=== PATIENT | male | born 1975 | race Two or more races ===

== ENCOUNTER 2023-12-16 20:47 | Emergency (ER) | payer BC ==
[~2023-12-16] VITALS: Ht 167.6 cm; Wt 96.0 kg
[2023-12-16 21:07] VITALS: O2SAT 99
[2023-12-17 01:27] VITALS: BP 127/66; PULSE 76; RESP 16; TEMP 98.2
== END 2023-12-17 01:25 | disposition home or self-care (01) ==
LOC: ER 21:52
DX: R04.0 Epistaxis (principal); Z88.0 Allergy status to penicillin
CPT/HCPCS: 99281